=== PATIENT | female | born 1950 | race Caucasian/White ===

== ENCOUNTER 2025-08-05 08:59 | Outpatient (AMB) | payer OTHER, SELFPAY ==
--- NOTE | 2025-08-05 09:28 | A.SPINEOV_ITS ---
Vital Signs 08/05/25 09:32 Height 5 ft 1 in Weight 200 lb BMI 37.8 Intake Visit Reasons: Low back pain Intake Note: Mrs. Short is here today c/o left sided sciatica pain that radiates all the way down to her foot. 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: No Allergies acetaminophen (From Percocet) Allergy (Severe, Verified 08/05/25 09:33) Shortness of Breath aspirin (From Percodan) Allergy (Severe, Verified 08/05/25 09:33) Shortness of Breath oxycodone (From Percodan) Allergy (Severe, Verified 08/05/25 09:33) Shortness of Breath Physical Exam Vital Signs: BMI result Body Mass Index 37.8 Assessment & Plan Assessment & Plan (1) Lumbar stenosis with neurogenic claudication: Code(s): M48.062 - Spinal stenosis, lumbar region with neurogenic claudication Category: Medical Plan Dear colleague On 08/05/2025, I saw for 2nd opinion Teresa Short for left sciatica. HPI: This 75-year-old female has a history of back pain for which she has seen equipment validation specialist in the past. She was offered surgery for her back pain but decided to hold off. In the meantime, she received injections. She comes in complaining of severe left leg pain that radiates all the way down to her left big toe. The symptoms are debilitating. The right side is unaffected. The symptom prevents her from walking or standing for any length of time. Laying down is the best position. She denies weakness or numbness. She resides in [place] the majority of the time and she underwent physical therapy chiropractic therapy, acupuncture and injections up there. She had a period of AFib, which is resolved according to the patient. She does take Eliquis for this. She saw a surgeon in forward I wanted to perform a 2 level lumbar fusion on her. She comes in for 2nd opinion. Her crane rigger already cleared her for this procedure. PMH: AFib, hypertension, hypercholesterolemia, asthma and osteopenia Medications: Eliquis, diltiazem, Ezetimibe, fluoxetine, lisinopril/hydrochlorothiazide, vitamin-D and calcium, atorvastatin, pantoprazole. The following medications are taking p.r.n.: Albuterol, ipratropium bromide, Ventolin and valacyclovir. Allergies: Percocet Social history: . Retired. Nonsmoker Physical Exam: Pleasant female height 5 2, weight 200 lb. She ambulates with a walker in a flexed position. She likes to be in a flexed position as it prevents the back pain that is located in the center of the lumbar spine. Extension immediately produces pain down her left leg. Straight leg raise is positive on the left side. No motor or sensory deficits. Radiological Studies: MRI done at [place] on 01/23/2024, shows a mild lumbar spondylolisthesis L3-4 and L4-5. More importantly there is severe spinal stenosis L3-4 and L4-5, with an increase in his spinal stenosis at L4-5 compared to prior imaging. A standing lumbar x-ray with flexion-extension again demonstrates the L3-4 and L4-5 grade 1 spondylolisthesis. I do not see an increase in the spondylolisthesis with movement. Impression/Plan: This patient is suffering from unilateral neurogenic claudication that is not responding to conservative measurements. An MRI shows severe spinal stenosis L3-4 and L4-5 and a grade 1 spondylolisthesis at these levels. The symptoms are on the left side and debilitating. I offered her a left-sided L3-4 and L4-5 decompression to decompress the L4 and L5 nerve roots. I did not offer her a lumbar fusion at this time based on the imaging and symptom presentation. She is tentatively scheduled for 09/13/2025. She will have the Cardiology and Pulmonary offices fax over there notes. She needs to discontinue Eliquis 3 days prior to surgery. Thank you for allowing me to participate in your patients care. total time spent was 50 minutes in counseling ,coordination of plan, personal review of imaging, surgical decision making and subsequent plan Deuce Johnson MD, PhD Spine Fellowship Trained Neurosurgeon Director, [facility] Coding Level of Care Code New Pt Level 4 (52171) Diagnoses Lumbar stenosis with neurogenic claudication M48.062
[2025-08-05 09:32] VITALS: BMI 37.8
--- OUTSIDE RECORDS SUMMARY | 2025-08-05 09:47 | XMS_ITS | Patient Health Record ---
Author Organization [facility] Address [address] [place] [id number] Care Team Providers Care Hospice Care Sales Consultant Name Role Phone Rivas Stevens Unavailable [phone] Reason For Referral No Information Plan Of Treatment No Information
== END 2025-08-05 10:23 | disposition home or self-care (01) ==
LOC: HO.HNS 09:00
PROVIDERS: Visit Provider Neurological Surgery
DX: M48.062 Spinal stenosis, lumbar region with neurogenic claudication (principal)
CPT/HCPCS: 99204

== ENCOUNTER 2025-09-13 08:16 | Day surgery (SDC) | payer MEDICARE, SELFPAY ==
[2025-08-31 10:29] VITALS: BP 150/69; PULSE 71; RESP 16; O2SAT 97; BMI 39.1
[2025-09-13] VITALS (8 sets, daily range): BP systolic 135–166; BP diastolic 72–92; PULSE 70–92; RESP 14–16; TEMP 36.3–36.4; O2SAT 92–97; BMI 38.4
--- NOTE | ~2025-09-13 | FL_ITS ---
EXAMINATION: FLUOROSCOPY GUIDANCE FOR NEEDLE PLACEMENT CLINICAL INFORMATION: Left L3-L5 Decompression COMPARISON: None available. TECHNIQUE: Fluoroscopy guidance provided for lumbar spine surgery FINDINGS: 2 submitted images demonstrate posterior instrument projecting over the posterior L4-5 disc space level. See procedure note for detailed findings. FLUOROSCOPY TIME: 6.4 seconds DOSE AREA PRODUCT: 2.1 Gy-cm2 FL/FL guidance in OR IMPRESSION: Intraoperative fluoroscopy guidance for lumbar spine surgery Electronically signed by: Daysi Mcfarland MD 09/13/2025 01:32 PM [facility]
[2025-09-13] MEDS: Lactated Ringers 1,000 ML 100 ML IVCONT (09:21)
--- NOTE | 2025-09-13 10:24 | HO.ANESPROP2 ---
Documented by User: Elizabeth Augustin NP 08/31/25 11:17 HPI - Anesthesia Eval Consult details Narrative: 75yo F for Left L3-4, L4-5 Decompression, 09/13/25 No recent illness No recent CP/SOB with very limited activity r/t pain. SOB with increased pain AGUSTIN: mild, did not require CPAP COPD/Asthma: Stable at baseline, Trelegy daily, no albuterol needed for months. Follows pulmo in [place] Afib: Eliquis - ok'd to hold. Follows Cardiology in [place]. Stable at 07/2025 office visit. Had ECHO and Stress 2024 and OK (see results below) Vocal cord nodules s/p excision 2021 and radiation (Last 06/2025). Follows ENT in [place]. Has been going to swallow therapy with improvement in swallowing. No stridor/difficulty breathing. Last ENT eval 04/2025 with laryngoscopy showing inlammatory changes of R cord with recurring lesion leading to radiation. No f/u since radiation. GERD: ppi controls - notes increased acid symptoms with anesthesia in the past PMFSH Active Problems Active Problems: All Active Problems Lumbar stenosis with neurogenic claudication (Acute) Past Medical History Medical History Basal cell carcinoma (BCC) in situ of skin Back pain Sleep apnea Bronchitis Hx of radiation therapy Vitamin D deficiency Mixed hyperlipidemia GI bleed Lumbar pain Hypnotic dependence Morbid obesity Depression Fatty liver Elevated cholesterol On anticoagulant therapy Afib Asthma Emphysema of lung COPD (chronic obstructive pulmonary disease) Osteoporosis Glaucoma Arthritis Allergies Heart disease Vocal cord nodules GERD (gastroesophageal reflux disease) HTN (hypertension) Family History Family history of problems with anesthesia: Yes (Sister PONV) Surgical History Surgical History (Updated 08/31/25 @ 10:17 by Jessenia Sandoval RN) History of surgery on upper extremity S/P excision of vocal cord nodule (~2021) Hx of hysterectomy H/O colonoscopy History of esophagogastroduodenoscopy (EGD) History of Problems with Anesthesia: No Social History Social History Are you a primary critical care technician to a significant other at home: No Do you presently have visiting nurse or other home services: No Patient Tobacco Use Status: Never used Tobacco Use of substances other than those prescribed or required for medical reasons: No Have you been hit, kicked, punched, or otherwise hurt by someone within the past year? If so, by whom?: No Advance Directives: No Advance Directives Information Provided: Yes Advance Directives on File: No Patient : No : No Meds Allergies Allergy/AdvReac Type Severity Reaction Status Date / Time oxycodone (From Percodan) Allergy Severe Shortness Verified 09/13/25 09:26 of Breath Home Medications ?Medication ?Instructions ?Recorded ?Confirmed ?Last Taken ?Type albuterol sulfate 2.5 mg/3 mL 2.5 mg inhalation Q6H PRN 08/30/25 08/30/25 Unknown History (0.083 %) solution for nebulization Shortness Of Breath Or Wheezing albuterol sulfate 90 mcg/actuation 2 puff inhalation Q6H PRN 08/30/25 08/30/25 Unknown History aerosol inhaler (Ventolin HFA) Shortness Of Breath Or Wheezing alendronate 70 mg tablet 70 mg PO QWEEK 08/30/25 08/30/25 Unknown History apixaban 5 mg tablet 5 mg PO BID 08/30/25 08/30/25 09/08/25 History atorvastatin 80 mg tablet 80 mg PO BEDTIME 08/30/25 08/31/25 Unknown History cholecalciferol (vitamin D3) 50 50 mcg PO QPM 08/30/25 08/31/25 Unknown History mcg (2,000 unit) tablet (Vitamin D3) cyanocobalamin (vitamin B-12) 1,000 mcg PO QPM 08/30/25 08/31/25 Unknown History 1,000 mcg tablet (Vitamin B-12) diltiazem HCl 240 mg capsule,24 240 mg PO DAILY 08/30/25 08/31/25 Unknown History hr,extended release ezetimibe 10 mg tablet 10 mg PO QPM 08/30/25 08/31/25 Unknown History fluoxetine 20 mg capsule 20 mg PO DAILY 08/30/25 08/30/25 Unknown History fluticasone fur. 200 mcg-umeclid 1 inh inhalation DAILY 08/30/25 08/30/25 Unknown History 62.5 mcg-vilant 25 mcg inhalat.powder (Trelegy Ellipta) ipratropium bromide 21 mcg (0.03 2 spray intranasal DAILY PRN 08/30/25 08/31/25 Unknown History %) nasal spray Allergy Symptoms lactobacillus combination no.4 3 3,000 mmu cells PO DAILY 08/30/25 08/31/25 Unknown History billion cell capsule (Probiotic) lisinopril 20 1 tab PO DAILY 08/30/25 08/31/25 Unknown History mg-hydrochlorothiazide 12.5 mg tablet pantoprazole 40 mg tablet,delayed 60 mg PO DAILY 08/30/25 08/30/25 Unknown History release valacyclovir 1 gram tablet 1,000 mg PO BID PRN Outbreak 08/30/25 08/30/25 Unknown History lorazepam 0.5 mg tablet 0.5 mg PO DAILY PRN Anxiety 08/31/25 08/31/25 Unknown History Exam Height,Weight and Vital Signs: Height 5 ft 1 in Weight 93.894 kg Last Vital Signs Pulse 71 08/31/25 10:29 Resp 16 08/31/25 10:29 BP 150/69 H 08/31/25 10:29 Pulse Ox 97 08/31/25 10:29 O2 Del Method Room Air 08/31/25 10:29 Pertinent Lab Results Pertinent Lab Results: CBC and CMP 01/2025 WNL Narrative Narrative: EKG 05/2025 SR with PVCs Short WI Borderline QT Holter 02/2025 Monitored for 7 days NSR, PACs, PVCx, with ventricular couplets Short runs of PAF Lexiscan Stress 02/2025 Nml perfusion studies with no evidence of stress induced ischemia Nml LV sys function ECHO 02/2025 Nml LV sys function, Mild LV diastolic dysfunction LVH Trace TR Mild pulmo htn with RV dysfunction and RVH (cardio attributes to ? AGUSTIN) Airway Mallampati Class: I TM Dist: >3cm Neck ROM: Limited Denture: Upper (implant) and Lower (implant) Heart: RRR Lungs: CTAB Assessment and Plan Assessment Anesthesia Assessment: Anesthesia Plan Discussed and PAT Visit Final Anesthetic Review Family History of Problems with Anesthesia: Yes (Sister PONV) History of Problems with Anesthesia: No Documented by User: Marce Quiroga DO 09/13/25 10:27 HPI - Anesthesia Eval Consult details Narrative: 75yo F for Left L3-4, L4-5 Decompression, 09/13/25 No recent illness No recent CP/SOB with very limited activity r/t pain. SOB with increased pain AGUSTIN: mild, did not require CPAP COPD/Asthma: Stable at baseline, Trelegy daily, no albuterol needed for months. Follows pulmo in [place] Afib: Eliquis - ok'd to hold. Follows Cardiology in [place]. Stable at 07/2025 office visit. Had ECHO and Stress 2024 and OK (see results below) Vocal cord nodules s/p excision 2021 and radiation (Last 06/2025). Follows ENT in [place]. Has been going to swallow therapy with improvement in swallowing. No stridor/difficulty breathing. Last ENT eval 04/2025 with laryngoscopy showing inflammatory changes of R cord with recurring lesion leading to radiation. No f/u since radiation. GERD: ppi controls - notes increased acid symptoms with anesthesia in the past PMFSH Past Medical History Medical History Basal cell carcinoma (BCC) in situ of skin Back pain Sleep apnea Bronchitis Hx of radiation therapy Vitamin D deficiency Mixed hyperlipidemia GI bleed Lumbar pain Hypnotic dependence Morbid obesity Depression Fatty liver Elevated cholesterol On anticoagulant therapy Afib Asthma Emphysema of lung COPD (chronic obstructive pulmonary disease) Osteoporosis Glaucoma Arthritis Allergies Heart disease Vocal cord nodules GERD (gastroesophageal reflux disease) HTN (hypertension) Family History Family history of problems with anesthesia: Yes (PONV (sister)) Surgical History Surgical History (Updated 08/31/25 @ 10:17 by Jessenia Sandoval RN) History of surgery on upper extremity S/P excision of vocal cord nodule (~2021) Hx of hysterectomy H/O colonoscopy History of esophagogastroduodenoscopy (EGD) History of Problems with Anesthesia: No Social History Social History Are you a primary critical care technician to a significant other at home: No Do you presently have visiting nurse or other home services: No Patient Tobacco Use Status: Never used Tobacco Use of substances other than those prescribed or required for medical reasons: No Have you been hit, kicked, punched, or otherwise hurt by someone within the past year? If so, by whom?: No Advance Directives: No Advance Directives Information Provided: Yes Advance Directives on File: No Patient : No : No Meds Allergies Allergy/AdvReac Type Severity Reaction Status Date / Time oxycodone (From Percodan) Allergy Severe Shortness Verified 09/13/25 09:26 of Breath Home Medications ?Medication ?Instructions ?Recorded ?Confirmed ?Last Taken ?Type albuterol sulfate 2.5 mg/3 mL 2.5 mg inhalation Q6H PRN 08/30/25 08/30/25 Unknown History (0.083 %) solution for nebulization Shortness Of Breath Or Wheezing albuterol sulfate 90 mcg/actuation 2 puff inhalation Q6H PRN 08/30/25 08/30/25 Unknown History aerosol inhaler (Ventolin HFA) Shortness Of Breath Or Wheezing alendronate 70 mg tablet 70 mg PO QWEEK 08/30/25 08/30/25 Unknown History apixaban 5 mg tablet 5 mg PO BID 08/30/25 08/30/25 09/08/25 History atorvastatin 80 mg tablet 80 mg PO BEDTIME 08/30/25 08/31/25 Unknown History cholecalciferol (vitamin D3) 50 50 mcg PO QPM 08/30/25 08/31/25 Unknown History mcg (2,000 unit) tablet (Vitamin D3) cyanocobalamin (vitamin B-12) 1,000 mcg PO QPM 08/30/25 08/31/25 Unknown History 1,000 mcg tablet (Vitamin B-12) diltiazem HCl 240 mg capsule,24 240 mg PO DAILY 08/30/25 08/31/25 Unknown History hr,extended release ezetimibe 10 mg tablet 10 mg PO QPM 08/30/25 08/31/25 Unknown History fluoxetine 20 mg capsule 20 mg PO DAILY 08/30/25 08/30/25 Unknown History fluticasone fur. 200 mcg-umeclid 1 inh inhalation DAILY 08/30/25 08/30/25 Unknown History 62.5 mcg-vilant 25 mcg inhalat.powder (Trelegy Ellipta) ipratropium bromide 21 mcg (0.03 2 spray intranasal DAILY PRN 08/30/25 08/31/25 Unknown History %) nasal spray Allergy Symptoms lactobacillus combination no.4 3 3,000 mmu cells PO DAILY 08/30/25 08/31/25 Unknown History billion cell capsule (Probiotic) lisinopril 20 1 tab PO DAILY 08/30/25 08/31/25 Unknown History mg-hydrochlorothiazide 12.5 mg tablet pantoprazole 40 mg tablet,delayed 60 mg PO DAILY 08/30/25 08/30/25 Unknown History release valacyclovir 1 gram tablet 1,000 mg PO BID PRN Outbreak 08/30/25 08/30/25 Unknown History lorazepam 0.5 mg tablet 0.5 mg PO DAILY PRN Anxiety 08/31/25 08/31/25 Unknown History Exam Exam Date and Time: 09/13/25 1025 Airway Mallampati Class: I TM Dist: <=3cm Neck ROM: Limited Loose/Missing/Broken Teeth: No (patient denies any loose or broken teeth; has multiple implants which are stable) Heart: S1S2 Assessment and Plan Assessment Anesthesia Assessment: Anesthesia Plan Discussed and Chart Reviewed Final Anesthetic Review Family History of Problems with Anesthesia: Yes (PONV (sister)) History of Problems with Anesthesia: No NPO: Yes ASA Class: III Final Preanesthetic Review: No Changes in Pt Med Stat, Meds/Allgs Chart Reviewed, Consent Obtained/Reviewed and Anes Risks/Benef Reviewed Patient Risk: Intermediate Procedure Risk: Intermediate Anesthetic Plan Anesthetic Plan: GA and Agree w/ Assess. and Plan Disposition: Standard PACU
--- NOTE | 2025-09-13 10:41 | MHC.SHP ---
Pre-Procedural Eval Section A - 24 Hr Update-Section A only Date of Service: 09/13/25 The patient is an INPATIENT: No Changes since office visit: No Cold of Flu in the past 2 weeks, No New Medical Problems, No Changes in Medication and No Patient answered all questions The patient has been examined within 24 hours of the surgical procedure. The History & Physical has been completed within 30 days and I have reviewed it.: No Section B - Complete if H&P > 30 days Chief Complaint: Spinal stenosis, lumbar region with neurogenic Allergies: Allergies Allergy/AdvReac Type Severity Reaction Status Date / Time oxycodone (From Percodan) Allergy Severe Shortness Verified 09/13/25 09:26 of Breath Review of Systems Sugical H&P ROS: Negative: Constitution, Cardiovascular, Respiratory, Neurological, Psychiatric, Hem-Onc, Allergic/Immunologic, Gastrointestinal, Genitourinary, Musculoskeletal, Integumentary, Endocrine and Eyes/Ears/Nose/Throat Exam Surgical H&P Exam: Normal: HEENT, Normal: Heart, Normal: Lungs, Normal: Extremities, Normal: Abdomen, Normal: Skin and Normal: Neurological (awake, alert,oriented x 3 ) Plan Diagnosis/Plan: Unchanged left L3-4, L4-5 decompression Time Spent With Patient Time: Total time managing care of this patient today __5__ minutes.
--- NOTE | 2025-09-13 10:42 | PM.DS ---
DS: Providers Provider Date of Service: 09/13/25 Date of discharge: 09/13/25 Primary care physician: Katia Puente MD Admitting clinician: Deuce Johnson DS: Diagnosis Discharge Diagnosis (1) Lumbar stenosis with neurogenic claudication: Status: Acute DS: Summary Time Attestation Discharge Coordination Time (in mins): 5 Quality: Safe Use of Opioids Does Pt have an Active Cancer Diagnosis on the Problem List?: No Quality: Stroke Does the patient have a stroke diagnosis?: No Physical Exam Vital Signs: Vital Signs: Last Vital Signs Temp 97.6 F 09/13/25 09:26 Pulse 92 09/13/25 09:26 Resp 16 09/13/25 09:26 BP 166/91 H 09/13/25 09:26 Pulse Ox 97 09/13/25 09:26 O2 Del Method Room Air 09/13/25 09:26 BMI result Body Mass Index 38.4 Discharge Plan Discharge Patient Disposition: Home, Self-Care Referrals: Katia Puente MD [Primary Care Provider, Internal Medicine] - 1 Week Discharge Medications: New tramadol 50 mg tablet 50 mg PO Q6H PRN (Reason: pain) Qty: 20 0RF Continued atorvastatin 80 mg Tablet 80 mg PO BEDTIME albuterol sulfate 2.5 mg /3 mL (0.083 %) Solution For Nebulization 2.5 mg INHALATION Q6H PRN (Reason: Shortness Of Breath Or Wheezing) lisinopril-hydrochlorothiazide 20-12.5 mg Tablet 1 tab PO DAILY valacyclovir 1 gram Tablet 1,000 mg PO BID PRN (Reason: Outbreak) alendronate 70 mg Tablet 70 mg PO QWEEK cyanocobalamin (vitamin B-12) [Vitamin B-12] 1,000 mcg Tablet 1,000 mcg PO QPM diltiazem HCl 240 mg Capsule,Extended Release 24 Hr 240 mg PO DAILY pantoprazole 40 mg Tablet,Delayed Release (Dr/Ec) 60 mg PO DAILY albuterol sulfate [Ventolin HFA] 90 mcg/actuation Hfa Aerosol Inhaler 2 puff INHALATION Q6H PRN (Reason: Shortness Of Breath Or Wheezing) fluoxetine 20 mg Capsule 20 mg PO DAILY ipratropium bromide 21 mcg (0.03 %) Remlap,Non-Aerosol 2 spray INTRANASAL DAILY PRN (Reason: Allergy Symptoms) Rx Instructions: administer into each nostril ezetimibe 10 mg Tablet 10 mg PO QPM cholecalciferol (vitamin D3) [Vitamin D3] 50 mcg (2,000 unit) Tablet 50 mcg PO QPM Probiotic 3 billion cell Capsule 3,000 mmu cells PO DAILY Rx Instructions: administer with a meal Trelegy Ellipta 200-62.5-25 mcg Blister With Device 1 inh INHALATION DAILY lorazepam 0.5 mg Tablet 0.5 mg PO DAILY PRN (Reason: Anxiety) Held apixaban 5 mg Tablet 5 mg PO BID Hold Instructions: Resume on 09/16/25. you may resume Eliquis in 3 days after surgery Discharge Orders: Discharge Order (Routine); Ordered 09/13/25 Ordered By: Khanh Hargrove Diet: Advance to usual diet Activity on Discharge: As tolerated Activity Restrictions/Additional Instructions: After your spinal surgery we ask you to observe the following restrictions/guidelines: Activity: It is normal to feel some discomfort as you increase your activity, but that will improve with time. We ask you avoid heavy lifting or acitivities that cause pain. As a general rule, 8lbs is a safe limit for lifting right after surgery. Walk as much as you feel comfortable but not to exhaustion. You will feel extra tired the first few days after surgery. Stay well hydrated. It is OK to walk up and down stairs You may return to driving when you are off narcotics (such as vicodin, oxycodone, dilaudid, etc), and you are back to normal functional capacity. If you have any concerns please check with office before driving. Return to work is specific to each patient and each surgery, so please speak with your doctor/PA at first follow up. Please bring paperwork such as FMLA at that time if you need it filled out. Medications: You may resume Eliquis 3 days after surgery For optimum pain control, it is best to start with a combination of 500 mg of Tylenol every 4 hours with 600 mg of Motrin every 8 hours, and use narcotics as needed in between for breakthrough pain. We will give you a short supply of narcotics after surgery (usually one weeks worth). If you need more please call the office but do not use more than prescribed. You will need to give our office 48 hours notice if you need narcotics refilled and we do not fill narcotics on weekends or evenings. If you are on a narcotic, it is a good idea to take a stool softener such as colace or senna to avoid constipation If you take blood thinner such as aspirin, Plavix, Coumadin, Effient, Eliquis etc for conditions such as Afib, DVT, Pulmonary embolus, coronary disease, stents etc please speak with your surgeon about specific details as to when you can resume these medications. Follow up: Please call the office, , after surgery to arrange a 3 week follow up for wound check. Wound Care: You may remove your dressing on the first day after surgery. ?You may ?leave open to air. Please do not remove the steri strips underneath. they will fall off on their own in one week. IT IS NORMAL FOR THE WOUND TO OOZE OR BE BLOODY FOR A FEW DAYS AFTER SURGERY. ?IF THIS HAPPENS JUST PLACE NEW DRESSING OVER IT TO AVOID STAINING CLOTHES. You may shower on post op day # 1 We ask that you do not let the water soak the wound. If it does get wet, just towel dry lightly. Please do not scrub your incision or place any type of chemical/ointment on the wound. No tub baths, pools or jacuzzis for one month. If you have any leaking or redness from your wound, or fevers, please call office Print Language: Portuguese
--- NOTE | 2025-09-13 13:19 | W.PM.OPN ---
Operative Note Operative Note Date of Service: 09/13/25 Narrative: Preoperative Diagnosis: L3-4, L4-5 spinal stenosis/lateral recess stenosis/neural foraminal stenosis Operation: Left L3-4, L4-5 Laminotomy, Partial facetectomy and foraminotomy with use of microscope Consent Informed Consent was obtained for this operation. I have explained the nature, purpose and benefits of the operation. I have discussed the risks and benefit of the operation including possible complications or adverse events with patient/family. Alternative(s) were discussed with the patient with their relative benefits and risks as well as the consequences of not accepting the operation were included in obtaining consent. Surgeon: PAULY OSORIO MD, PHD Procedure Assisted By: Khanh Aviles Description of Procedure This patient is suffering from left sciatica due to severe lumbar stenosis at L3-4 and L4-5. She was offered a left-sided decompression of the levels.The procedure complications were explained. The patient was consented. The patient was brought to the operating room and endotracheally intubated. The patient was turned in prone position on the Arie frame. Prep and drape was done followed by timeout. The Physician cosmetic sales assistant provided access. A mid lumbar incision was made followed by release of the paravertebral muscle on the left side to expose the L3-L5 lamina and facet joints. An intraoperative x-ray was obtained to confirm the correct level. The microscope was brought in. I took over the procedure. The high-speed drill was used to do a left L3-4 laminotomy until flavum ligament was reached. A #2 Kerrison was used to expand the laminotomy near flush to the pedicles and to include a partial facetectomy. The flavum ligament was opened and resected with a #3 Kerrison to decompress the underlying thecal sac. The flavum ligament was removed to decompress the lateral recess and the exiting L4 nerve rootb. A long nerve hook could be easily passed along the medial side of the pedicle as a sign of adequate decompression. Then attention was turned to the L4-5 level. A left L4-5 hemilaminotomy was done. A hypertrophied median facet was encountered and after medial facetectomy were done an immediate decompression of the thecal sac and exiting nerve root occurred. The flavum ligament was further resected to free up the nervous tissues. Long nerve hook could be easily passed lateral from the nerve root. The microscope was removed. Hemostasis was done. The physician cosmetic sales assistant close the incision in 2 layers. Steri-Strips were used to approximate incision. An OpSite with Tegaderm was used to cover the incision. All sponge needle counts were correct. Patient was extubated and transported in stable is to recovery room. Anesthesia: General Estimated Blood Loss (ml): 30 Complications: None Duration of Surgery: Under 60 Minutes Postoperative Plan: Discharge to home
== END 2025-09-13 14:42 | disposition home or self-care (01) ==
PROVIDERS: PCP Internal Medicine; Visit Provider Neurological Surgery
PROC: (CPT 63047; principal; 2025-09-13 11:00)
DX: M48.062 Spinal stenosis, lumbar region with neurogenic claudication (principal); M54.32 Sciatica, left side; M54.50 Low back pain, unspecified; M79.605 Pain in left leg; M43.16 Spondylolisthesis, lumbar region; M85.80 Other specified disorders of bone density and structure, unspecified site; R26.2 Difficulty in walking, not elsewhere classified; I10 Essential (primary) hypertension; E78.00 Pure hypercholesterolemia, unspecified; J45.909 Unspecified asthma, uncomplicated; I48.91 Unspecified atrial fibrillation; Z79.01 Long term (current) use of anticoagulants; Z99.89 Dependence on other enabling machines and devices; Z79.899 Other long term (current) drug therapy; Z88.5 Allergy status to narcotic agent; Z88.6 Allergy status to analgesic agent
CPT/HCPCS: 63047; 63048; J0131; J0690; J1100; J1171; J1308; J1885; J2003; J2371; J2405; J2704; J3010

== ENCOUNTER → 2025-09-13 08:16 | Outpatient (BNV) | payer MEDICARE, SELFPAY | PROVIDERS: PCP Internal Medicine; Visit Provider Physician Assistant | DX: M48.062 Spinal stenosis, lumbar region with neurogenic claudication (principal) | CPT/HCPCS: 63047; 63048; 99499 ==

== ENCOUNTER 2025-10-05 08:54 | Outpatient (AMB) | payer MEDICARE, SELFPAY ==
--- OUTSIDE RECORDS SUMMARY | 2011-07-31 03:30 | XMS_ITS | Continuity of Care Document ---
Author Organization [facility] Address [address] [place] [address] Phone Care Team Providers Care Social Science Instructor Name Role Phone Michelle Vee D.O. Unavailable Unavailab le Allergies, Adverse Reactions, Alerts Substance Reaction Status Criticality aspirin internal bleeding Active No Informa tion OXYCODONE HCL dyspnea Active No Information acetaminophen dyspnea Active No Information Medications Medication Instructions Dosage Dose Quantity Effective Dates (start - stop) Status Indication Fill Status Comments lisinopril-h ydrochloroth iazide 10 mg-12.5 mg Tab take 1 tablet by oral route every day 1 MG 2 tablet 1 - Active simvastatin 40 mg Tab take 1 tablet (40MG) by oral route every day in the evening 1 MG 2 tablet Jul- 1 - Active fluoxetine 40 mg Cap take 1 capsule (40MG) by oral route every day in the morning 1 MG 2 tablet 1 - Active pantoprazole 40 mg Tab, Delayed Release take 1 tablet (40MG) by oral route every day 1 MG 2 tablet 1 - Active Vitamin D 50,000 unit Cap take 1 capsule ([id number]) by oral route every week 1 MG 2 tablet 1 - Active calcium-magn esium Tab 1 MG 2 tablet 1 - Active ProAir HFA 90 mcg/Actuatio n Aerosol Inhaler inhale 2 puff by inhalation route every 4 - 6 hours as needed 1 MG 2 tablet 1 - Active Advair Diskus 250 mcg-50 mcg/dose for Inhalation inhale 1 puff by inhalation route 2 times every day in the morning and evening approximately 12 hours apart 1 MG 2 tablet 1 - Active Spiriva with HandiHaler 18 mcg & inhalation Caps inhale 1 capsule (18MCG) by inhalation route every day 1 MG 2 tablet 1 - Active albuterol sulfate 2.5 mg/0.5 mL Neb Solution inhale 0.5 milliliter (2.5MG) by nebulization route 3 times every day 1 MG 2 tablet 1 - Active Singulair 10 mg Tab take 1 tablet (10MG) by oral route every day in the evening 1 MG 2 tablet 1 - Active lorazepam 0.5 mg Tab take 2 tablet (1MG) by oral route 3 times every day as needed 1 MG 2 tablet 1 - Active Procedures Procedure Date OFFICE VISIT Level 3, [facility] Advance Directives Directive Yes / No Effective Date File Name No Information Encounters Encounter Description Practice Location Reason(s) For Visit Diagnoses Date Provider Encounter Disposition OFFICE VISIT Level 3, [facility], [address], [id number], tel:[phone] [place] [facility] Abnormal Lab (chief complaint) LumbagoUnspecifie d diffuse connective tissue disease 1 [facility]. [address], [id number] . tel: [phone] [facility], [address], [id number], tel:[phone] [place] [facility] SLE (chief complaint) Rash and other nonspecific skin eruptionLumbago 1 [facility]. [address], [place], [id number] . tel: [phone] Family History Family Member Type Diagnosis Age At Onset Mother Problem (finding) Heart disease Problem (finding) Brother Problem (finding) Heart disease Father Problem (finding) prostate cancer Problem (finding) Family history of hyper tension Payers Payer name Insurance type Identifiers Authorization(s) Com ments [employer] BL r ID: [id number] Name: Coverage Status Eligibility Check on: [id number] nship to Subscriber: spousePayer Address: [facility] [address], [place], [place], [address] Phone: [phone] Social History Type Description Quantity Date Captured Comments Alcohol Use Details wine Caffeine Use Details No Tobacco Use Status No Information Smoking Status No Information Sex Female Current Gender Female (finding) Vital Signs Date / Time: Height Weight BMI Pulse Rate Blood Pressure Temperature Respiratory Rate Body Surface Area Head Circumference Head Circ. Percentile Wt./Dano. Percentile BMI percentile Pulse Ox Inhaled Ox 8:27 AM 184.00 lbs 68 /min 122/70 mm[Hg] 14 /min Chief Complaint And Reason For Visit From encounter dated 07/31/2011 08:30'. Abnormal Lab (chief complaint) History Of Present Illness Encounter Date Complaint History Of Prese nt Illness No Information Functional Status Date Description Comments No Information Instructions Date Instruction Additional Infor mation No Information Assessments Type Assessment Date No Information
--- NOTE | 2025-10-05 08:57 | HO.SPINEOV ---
Intake Visit Reasons: 1st post op Intake Note: Ms. Short is here today for her 1st post op. 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 Johnson. She reports that overall she has done well since her surgery, and reports near complete resolution of her left lower extremity pain. She does still have some posterior buttocks pain that will occasionally flare-up, but states that this too is improving. She overall is walking much better and standing without much issue, compared to her preoperative evaluation in clinic where she reported severe radicular pain with ambulation and standing. No new neurological deficits. The patient ambulates well and rises from a seated position without difficulty. She ambulates with a walker. Her posterior incision site is closed and well healing. With no signs of erythema or drainage. I would like to follow up with Teresa again in 6 weeks for her 2nd postoperative visit. Amol Johnson MD,PhD [facility] Coding Level of Care Code Global (95676) Diagnoses Lumbar stenosis with neurogenic claudication M48.062
--- OUTSIDE RECORDS SUMMARY | 2025-10-05 09:01 | XMS_ITS | Patient Health Record ---
Author Organization [facility] Address [address] [place] [id number] Care Team Providers Care [employer] Travel Club Counselor Name Role Phone Rivas Stevens Unavailable [phone] Reason For Referral No Information Plan Of Treatment No Information
== END 2025-10-05 09:17 | disposition home or self-care (01) ==
LOC: HO.HNS 08:55
PROVIDERS: PCP Internal Medicine; Visit Provider Physician Assistant
DX: M48.062 Spinal stenosis, lumbar region with neurogenic claudication (principal)
CPT/HCPCS: 99024

== ENCOUNTER → 2025-10-05 08:54 | Outpatient (BNVA) | payer MEDICARE, SELFPAY | PROVIDERS: PCP Internal Medicine; Visit Provider Physician Assistant | DX: M48.062 Spinal stenosis, lumbar region with neurogenic claudication (principal) | CPT/HCPCS: 99212 ==